=== PATIENT | female | born 1965 | race Caucasian/White ===

== ENCOUNTER 2019-07-14 05:53 | Observation (INO) ==
--- NOTE | 2019-06-29 16:11 | PAT Medication Instructions ---
Medication Instructions Date of Service June 29, 2019 Home Medications aspirin [Aspir-81] 81 mg PO QAM 06/23/19 [History Confirmed 06/23/19] diclofenac sodium 2 g TOPICAL BID 06/23/19 [History Confirmed 06/23/19] duloxetine 60 mg PO QPM 06/23/19 [History Confirmed 06/23/19] esomeprazole magnesium 20 mg PO BID 06/23/19 [History Confirmed 06/23/19] meloxicam 7.5 mg PO BID 06/23/19 [History Confirmed 06/23/19] ASK your surgeon for instructions meloxicam 7.5 mg PO BID 06/23/19 [History Confirmed 06/23/19] ASK your prescriber and surgeon aspirin [Aspir-81] 81 mg PO QAM 06/23/19 [History Confirmed 06/23/19] STOP taking 24 hours before surgery diclofenac sodium 2 g TOPICAL BID 06/23/19 [History Confirmed 06/23/19] Take morning of surgery With a small sip of water, OTHERWISE NOTHING TO EAT OR DRINK AFTER MIDNIGHT: esomeprazole magnesium 20 mg PO BID 06/23/19 [History Confirmed 06/23/19] Take evening before surgery duloxetine 60 mg PO QPM 06/23/19 [History Confirmed 06/23/19] esomeprazole magnesium 20 mg PO BID 06/23/19 [History Confirmed 06/23/19] Other Notes If you have any questions please call us at [phone] or [phone] or [phone] or [phone]
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
[2019-06-30 12:14] LABS: Appearance Urine Clear (Clear); Bilirubin Urine Negative (Negative); Blood Urine Negative (Negative); Color Urine Yellow; Glucose Urine UA Negative (Negative); Ketones Urine Negative (Negative); Leukocyte Esterase Urine Negative (Negative); Nitrite Urine Negative (Negative); Protein Urine Negative (Negative); Specific Gravity Urine 1.014 (1.000-1.030); Urobilinogen Urine Negative (Negative)
[2019-06-30 12:18] LABS: Basophils # (auto) 0.03 K/uL (0-0.2); Basophils % (auto) 0.4 %; Eosinophils # (auto) 0.04 K/uL (0-0.5); Eosinophils % (auto) 0.5 %; Hematocrit (blood only) 41.5 % (37-47); Hemoglobin 13.9 g/dL (12.0-16.0); Immature Granulocytes # (auto) 0.01 K/uL (0.00-0.02); Immature Granulocytes % (auto) 0.1 %; Lymphocytes # (auto) 1.84 K/uL (1.2-3.4); Lymphocytes % (auto) 23.7 %; Mean Corpuscular Hemoglobin 30.5 pg (25-34); Mean Corpuscular Hgb Conc 33.5 g/dL (32-36); Mean Platelet Volume 10.8 fL (7.4-10.4); Monocytes % (auto) 6.4 %; Neutrophils # (auto) 5.34 K/uL (1.4-6.5); Neutrophils % (auto) 68.9 %; Platelet Count 223 K/uL (130-400); RDW Coefficient of Variation 14.1 % (11.5-14.5); RDW Standard Deviation 46.9 fL (36.4-46.3); Red Blood Count 4.56 M/uL (4.2-5.4); White Blood Count 7.76 K/uL (4.8-10.8)
[2019-06-30 12:27] LABS: Partial Thromboplastin Ratio 0.8; Prothrombin Time 9.8 Seconds (9.0-12.0)
--- NOTE | 2019-06-30 12:40 | XRay Report ---
XR chest Pre-admission PA/Lat CLINICAL HISTORY: Preoperative chest COMPARISON STUDY: No previous studies for comparison. FINDINGS: The cardiac and mediastinal contours are normal. There is no evidence of focal pulmonary co nsolidation. There is no evidence of failure. No pleural effusions are visualized.[ IMPRESSION: No active disease in the chest. Electronically signed by: Alan Urena M.D. 06/30/2019 12:39 PM
[2019-06-30 15:09] LABS: BUN Creatinine Ratio 14.4 (10-20); Calcium 9.5 mg/dl (8.5-10.1); Creatinine Clr Calc Pharmacy 82.5 ml/min; Est GFR (Non-African American) 79.4
[2019-07-14] MEDS ORDERED: ACETAMINOPHEN 500 MG TAB PO SCH (06:00)
[2019-07-14] MEDS ORDERED: CeleBREX 200 MG CAP PO SCH (06:00)
[2019-07-14] MEDS ORDERED: LR 15ML/HR IV SCH (06:00)
[2019-07-14] MEDS ORDERED: CEFAZOLIN 2000MG 2,000 MG/15 ML SYR IV SCH (06:00)
[2019-07-14] MEDS ORDERED: GABAPENTIN 900 MG DOSE PO SCH (06:00)
[2019-07-14] MEDS ORDERED: fentaNYL citrate 100 MCG/2 ML VIAL ONE ×5 (06:36→09:35)
[2019-07-14] MEDS ORDERED: MIDAZOLAM HCL 1 MG/ML 2ML VIAL ONE (06:36)
[2019-07-14] MEDS ORDERED: HYDROmorphone INJ 2 MG/ML SYR/VIAL ONE ×2 (06:37→08:12)
[2019-07-14] MEDS ORDERED: PROPOFOL IV EMULSION 10 MG/ML 100 ML VIAL IV ONE (06:52)
[2019-07-14] MEDS ORDERED: BACITRACIN INJ 50,000 UNIT VIAL ONE (07:07)
[2019-07-14] MEDS ORDERED: SODIUM CHLORIDE 0.9% INJ 10 ML VIAL ONE (07:20)
--- NOTE | 2019-07-14 07:29 | History & Physical Bridge Note ---
Date of Service July 14, 2019 History & Physical Bridge Note I have examined the patient, reviewed the History & Physical and in the interval since the performance of the History & Physical I have noted the following changes of clinical significance: no changes noted
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
[2019-07-14] MEDS ORDERED: LIDOCAINE HCL 2% 2 ML VIAL/AMP(20MG/ML) INFIL ONE (08:13)
[2019-07-14] MEDS ORDERED: ROCURONIUM BROMIDE 10 MG/ML 5 ML VIAL ONE (08:13)
[2019-07-14] MEDS ORDERED: ONDANSETRON INJ 2 MG/ML 2 ML VIAL ONE ×2 (08:13→09:38)
[2019-07-14] MEDS ORDERED: GLYCOPYRROLATE 0.2 MG/ML VIAL ONE (08:13)
[2019-07-14] MEDS ORDERED: PROPOFOL IV EMULSION 10 MG/ML 20 ML VIAL IV ONE ×2 (08:13→09:39)
[2019-07-14] MEDS ORDERED: DEXAMETHASONE SOD INJ 4 MG/ML VIAL ONE (08:13)
[2019-07-14] MEDS ORDERED: ePHEDrine sulfate 50 MG/ML SYR ONE (08:13)
[2019-07-14] MEDS ORDERED: NEOSTIGMINE METHYLSULFATE 1 MG/ML 10ML VIAL ONE (08:13)
[2019-07-14] MEDS ORDERED: PHENYLEPHRINE 100MCG/ML 5ML SYR ONE (08:20)
[2019-07-14] MEDS ORDERED: LARYING-O-JET KIT (LTA) ONE (08:20)
[2019-07-14] MEDS ORDERED: FLOSEAL HEMOSTATIC MATRIX 10ML TOP ONE (09:21)
--- NOTE | 2019-07-14 09:30 | Operative Report ---
Post Operative Report Pre & Post Diagnosis Operation Date: 07/14/19 07:45 Pre-Op Diagnosis: Cervical stenosis with cervical disc herniation and radiculopathy Post-Op Diagnosis: Same I identified the patient and participated in the time-out.: Yes Procedure Operation Date: 07/14/19 07:45 Actual Procedures #1 anterior cervical discectomy with bilateral foraminotomies C5-6 C6-7. #2 anterior cervical arthrodesis C5-6 C6-7. #3 placement of Spira 7 mm cage filled with DBM at C5-6 and 8 mm cage at C6-7. #4 application of fermin plate and screws from C5-C7. Surgeon Deon Lindsey, Ophthalmic Tech Kayley Diallo Estimated Blood Loss 25 Findings Consistent with Post-Op Diagnosis Specimens None Indications This is a 54-year-old female presents with above-mentioned diagnosis after failing extensive course of nonoperative care like to undergo the above- mentioned procedure. Description of Procedure Patient was met with identified and informed consent obtained. Patient was then taken to the operative suite underwent intubation placed in supine position Rohan table with head [employer] cafeteria cook head. All bony prominences well-padded eyes inspected to ensure no external pressure placed upon the peer at this point the anterior cervical spine was prepped and draped in a normal sterile fashion. The assistance of fluoroscopy identified the see 6 vertebral body and a transverse incision was placed along the right anterior aspect of the cervical spine overlying this region. Sharp dissection with the assistance of Bovie cautery was performed down to and exposing the anterior cervical spine from C5- C7. Self-retaining retractors placed. I then performed a complete discectomy a t C5-6 out to the uncovertebral joints bilaterally. [place] distracting pins were utilized. Removed all posterior annular fibers longitudinal ligament of disc fragments identified and removed. Bilateral foraminotomies performed. The endplates were then burred to subcortical being bone and a 7 mm Spira cage filled with DBM tapped in position. I then proceeded to C6-7. Again complete discectomy performed out to the uncovertebral joints bilaterally. [place] distracting pins again utilized. Removed all posterior annular fibers all disc herniated fragments and bilateral foraminal was performed endplates were then burred to subcortical bleeding bone and a 8 mm spiral cage filled with DBM tapped in position. Distraction apparatus was removed and a fermin plate and screws applied with the assistance of fluoroscopy. The incision was then copiously irrigated explored to ensure no damage to surrounding structures remaining bleeding. 10 round GUILLERMO drain inserted. The incision was then closed with 2 Vicryl in the fascia and 4 Monocryl for final skin closure. Steri-Strip sterile dressings placed. Patient awakened taken to PACU stable condition. Please note Kayley Diallo present throughout the entire procedure involved in patient positioning complex portions of the surgery and final skin closure. Lastly spinal cord monitoring was utilized throughout the procedure no changes noted. I attest to the content of the Intraoperative Record and any orders documented therein. Any exceptions are noted below.
[2019-07-14] MEDS ORDERED: METOCLOPRAMIDE HCL INJ 5 MG/ML 2 ML VIAL ONE (09:38)
[2019-07-14] MEDS ORDERED: raNITIdine HCl 25 MG/ML VIAL IV ONE (09:38)
--- NOTE | 2019-07-14 10:27 | Fluoroscopy Report ---
FL cervical 2-3V CLINICAL HISTORY: 54 years-old Female presenting with C5-C7 ACDF. TECHNIQUE: 3 fluoroscopic image(s) recorded as part of an intraoperative procedure. COMPARISON: None. FINDINGS/IMPRESSION: Post-surgical changes of anterior cervical discectomy and fusion. Straightening of normal cervical lo rdosis likely positional. Surgical material and support devices project over the anterior neck. Please see surgical report for further details. Fluoroscopy dosage (mGy): 1.46. Fluoroscopy time: 12.0 seconds. Number or time of high level fluoroscopy (HLF), digital spot, or digital subtraction images: 1.7 seco nds. Electronically signed by: Parish Hale M.D. 07/14/2019 10:25 AM
--- NOTE | 2019-07-14 10:29 | Anesthesiology Progress Note ---
Date of Service July 14, 2019 Anesthesia Post Procedure Vital Signs Vital Signs: Temp Pulse Resp BP Pulse Ox 07/14/19 10:15 85 13 133/81 98 07/14/19 10:05 72 12 145/76 H 100 07/14/19 09:55 80 14 141/76 H 100 07/14/19 09:47 36.7 C 83 13 138/78 98 07/14/19 06:35 36.8 C 84 16 137/87 95 Pain Intensity Back: Pain Intensity: 2 Neck: Pain Intensity: 0 Transfer of Care Handoff Completed per policy Notes Mental Status: alert / awake / arousable and participated in evaluation Patient Amnestic to Procedure: Yes Nausea / Vomiting: adequately controlled Pain: adequately controlled Airway Patency, RR, SpO2: stable & adequate BP & HR: stable & adequate Hydration State: stable & adequate Anesthetic Complications: no major complications apparent
[2019-07-14] MEDS ORDERED: ESMOLOL HCL INJ 10 MG/ML 10ML VIAL IV ONE (10:38)
[2019-07-14] MEDS ORDERED: METOCLOPRAMIDE HCL INJ 5 MG/ML 2 ML VIAL IV PRN (11:25)
[2019-07-14] MEDS ORDERED: SOD PHOSPHATE/SOD BIPHOSPHATE ENEMA 132 ML BTL PR PRN (11:25)
[2019-07-14] MEDS ORDERED: ONDANSETRON 4 MG OD TAB PO PRN (11:25)
[2019-07-14] MEDS ORDERED: HYDROmorphone INJ 0.5 MG/0.5 ML SYR IV PRN (11:25)
[2019-07-14] MEDS ORDERED: ONDANSETRON INJ 2 MG/ML 2 ML VIAL IV PRN (11:25)
[2019-07-14] MEDS ORDERED: TRAMADOL HCL 50 MG TABLET PO PRN (11:25)
[2019-07-14] MEDS ORDERED: PROMETHAZINE HCL 12.5 MG in SODIUM CHLORIDE 0.9% 50 ML IV PRN (11:25)
[2019-07-14] MEDS ORDERED: ALUMINUM/MAGNESIUM SUSP 30 ML UDC PO PRN (11:25)
[2019-07-14] MEDS ORDERED: LORazepam 0.5 MG/1 ML VIAL IV PRN (11:25)
[2019-07-14] MEDS ORDERED: ACETAMINOPHEN 500 MG TAB PO PRN (11:25)
[2019-07-14] MEDS ORDERED: RACEPINEPHRINE 2.25% NEBU SOLN 0.5 ML VIAL INH PRN (11:25)
[2019-07-14] MEDS ORDERED: DEXAMETHASONE SOD PHOSPHATE 8 MG in SYRINGE 0 ML IV PRN (11:25)
[2019-07-14] MEDS ORDERED: DO NOT ADMINISTER FLU VACCINE PRN (11:25)
[2019-07-14] MEDS ORDERED: NALOXONE HCL 0.4 MG/1 ML VIAL/CARP IV PRN (11:25)
[2019-07-14] MEDS ORDERED: MAGNESIUM HYDROXIDE SUSP 30 ML UDC PO PRN (11:25)
[2019-07-14] MEDS ORDERED: FAMOTIDINE 20 MG TAB PO PRN (11:25)
[2019-07-14] MEDS ORDERED: HYDROmorphone INJ 1 MG/ML SYRINGE IV PRN (11:25)
[2019-07-14] MEDS ORDERED: ACETAMINOPHEN 1,000 MG/100 ML VIAL IV PRN (11:25)
[2019-07-14] MEDS ORDERED: DO NOT ADMINISTER PNEUMOCOCCAL VACCINE PRN (11:25)
[2019-07-14] MEDS ORDERED: LORazepam 0.5 MG TAB PO PRN (11:25)
[2019-07-14] MEDS: OXYCODONE HCL IR 5 MG TAB (IMMEDIATE RELEASE) PO PRN ×2 (13:12→21:01)
[2019-07-14] MEDS: LACTATED RINGER'S 1,000 ML IV SCH ×2 (14:08→23:08)
[2019-07-14] MEDS: CEFAZOLIN 2000MG 2,000 MG/15 ML SYR IV SCH ×2 (16:24→23:39)
[2019-07-14] MEDS: PANTOprazole 40 MG TAB PO SCH (20:15)
[2019-07-14] MEDS ORDERED: COUGH DROP (SUGAR FREE) LOZ 24 LOZ/1 BOX BUCCAL STA (20:56)
[2019-07-14] MEDS ORDERED: DULOXETINE HCL 60 MG CAP PO SCH (21:00)
[2019-07-14] MEDS ORDERED: DOCUSATE SODIUM/SENNA 50/8.6MG TAB PO SCH (21:00)
[2019-07-15 06:13] LABS: Basophils # (auto) 0.01 K/uL (0-0.2); Basophils % (auto) 0.1 %; Eosinophils # (auto) 0.01 K/uL (0-0.5); Eosinophils % (auto) 0.1 %; Hematocrit (blood only) 36.1 % (37-47); Immature Granulocytes # (auto) 0.02 K/uL (0.00-0.02); Immature Granulocytes % (auto) 0.2 %; Lymphocytes # (auto) 1.75 K/uL (1.2-3.4); Lymphocytes % (auto) 16.2 %; Mean Corpuscular Hemoglobin 30.3 pg (25-34); Mean Corpuscular Hgb Conc 33.2 g/dL (32-36); Mean Corpuscular Volume 91.2 fL (80-100); Mean Platelet Volume 10.8 fL (7.4-10.4); Monocytes # (auto) 1.01 K/uL (0.11-0.59); Monocytes % (auto) 9.4 %; Neutrophils # (auto) 7.97 K/uL (1.4-6.5); Platelet Count 181 K/uL (130-400); RDW Coefficient of Variation 14.5 % (11.5-14.5); RDW Standard Deviation 48.9 fL (36.4-46.3); Red Blood Count 3.96 M/uL (4.2-5.4); White Blood Count 10.77 K/uL (4.8-10.8)
[2019-07-15 06:46] LABS: BUN Creatinine Ratio 9.4 (10-20); Calcium 8.9 mg/dl (8.5-10.1); Creatinine Clr Calc Pharmacy 93.4 ml/min; Est GFR (African American) 102.3; Est GFR (Non-African American) 88.3
[2019-07-15] MEDS: PANTOprazole 40 MG TAB PO SCH (07:23)
[2019-07-15 07:41] VITALS: O2SAT 95
[2019-07-15 07:51] VITALS: BP 147/89; PULSE 80; TEMP 98.1
[2019-07-15] MEDS ORDERED: ASPIRIN 81 MG ECTAB PO SCH (09:00)
[2019-07-15] MEDS ORDERED: POLYETHYLENE (MIRALAX) 17 GM PACK PO SCH (09:31)
--- NOTE | 2019-07-15 10:03 | Discharge Summary ---
Date of Service July 15, 2019 Admission HPI Per Admitting Provider This is a 54-year-old female who presents with chronic persistent neck and arm pain. After failing extensive course of nonoperative care is here for surgical intervention. Principal Diagnosis Cervical disc herniations with radiculopathy Discharge Data Allergies Allergy/AdvReac Type Severity Reaction Status Date / Time No Known Allergies Allergy Verified 07/14/19 06:12 Procedures Performed Operation Date: 07/14/19 07:45 Actual Procedures p C5-C7 Anterior Cervical Discectomy and Fusion with Spinal Cord Monitoring(Not Applicable) - Deon Lindsey DO Ordered Studies 07/14/19 07:45 FL cervical 2-3V Routine FL fluoroscopy <1hr Routine Hospital Course (1) Cervical stenosis of spinal canal: Patient underwent anterior cervical discectomy fusion tolerated so was taken to orthopedic for postoperative. Postop day 1 she was swallowing well no hoarseness. Arm symptoms markedly improved. Pain well controlled. Subsequently discharged home. She had excellent strength testing. Discharge orders instructions from the chart for further review. Total Time Total Time Spent Total Time Spent (In Minutes): 20 minutes Discharge Plan Discharge Items Patient Disposition: Home - Self-Care Reason For Visit: Spinal Stenosis, Cervical Region Discharge Diagnosis: Cervical disc herniations with radiculopathy Activity: As commented below Non-emergency contact: Primary Care Provider Call non-emergency contact if: you have any medication questions Follow-up/Referrals: Severo Castañeda D.O. [Primary Care Provider] - Diet: Regular Addtl Attending Provider Instructions: ACTIVITY RECOMMENDATIONS: SELF CARE INSTRUCTIONS AFTER CERVICAL FUSIONS 1. No smoking. Smoking drastically decreases the chance of a solid fusion. 2. No bending, lifting more than 5 pounds, or twisting (roll like a log when turning in bed). 3. You may shower 3 days after surgery. Thoroughly dry wound. Do not soak in the tub. 4. Cervical collar: Must be worn at all times including sleeping. You may remove the brace only to bath, eat and if you are sitting in a recliner. 5. Please walk as much as you can for exercise. Gradually increase the distance that you walk as your endurance increases. SPECIAL CARE INSTRUCTIONS: VERY IMPORTANT TO READ AND REVIEW A. Do not take any anti-inflammatory medications (i.e. Indocin, Advil, Aspirin, Naprosyn, Aleve, Motrin, etc.) as these may inhibit the chance of a solid fusion. Tylenol is okay to take. B. Your surgical incision has been closed with a cosmetic suture under the skin that will dissolve in about 6 weeks. In 14 days, you can use a pair of clean scissors and cut the suture that is left outside of the skin at the ends of your incision. C. Complications are uncommon, but please contact us if you have any signs or symptoms of: 1. wound infection (fever higher than 102.5 degrees F, redness, separation of wound, drainage, or increasing pain from the incision) 2. blood clots in legs (pain, swelling, redness and warmth in legs) 3. urinary tract infection (fever higher than 102.5 degrees, burning upon urination or increased frequency of urination) 4. nerve problems (inability to walk on your toes or heels, numbness, loss of bowel or bladder control) 5. any other symptoms that concern you. D. Please call the office at if you have any concerns or questions about your operation or recovery. MANAGING PAIN AFTER SPINAL SURGERY 1. Narcotic medication is intended for short-term use and will be provided for surgical pain. Surgical pain usually lasts for a period of 4-6 weeks. Narcotic medication includes Percocet, Vicodin, Darvocet, Tylenol #3 or Lortab. 2. Longer-term pain is more appropriately treated with non-narcotic medication such as Tylenol ES. 3. Muscle spasm is not appropriately treated with narcotics. Muscle relaxers such as Soma, Flexeril or Skelaxin can be used along with Tylenol ES. 4. Remember that we all live with some "aches and pains". This is not unusual or uncommon after an injury or as we get older. 5. We will provide appropriate medication within the normal guidelines of their prescribed use. We will also be very cautious and aware of potential abuse and extended duration of patients' medication needs. 6. Please allow 2-3 days to process refills. Prescriptions will not be mailed but must be picked up at the office. FOLLOW UP VISIT: Keep your scheduled follow-up appointment. Any questions, please call the office at . Pending Studies at Discharge: No Stand-Alone Forms: My [facility], Smoking Cessation Medications and DC Order Prescriptions: New tramadol 50 mg tablet 50 mg PO Q6H PRN (Reason: pain, moderate) Qty: 15 RF: 0 oxycodone 5 mg tablet 5 mg PO Q6H PRN (Reason: pain, severe) Qty: 15 RF: 0 Continued aspirin [Aspir-81] 81 mg Tablet,Delayed Release (Dr/Ec) 81 mg PO QAM RF: 0 esomeprazole magnesium 40 mg Capsule,Delayed Release(Dr/Ec) 20 mg PO BID RF: 0 duloxetine 60 mg Capsule,Delayed Release(Dr/Ec) 60 mg PO QPM RF: 0 diclofenac sodium 1 % Gel 2 g TOPICAL BID RF: 0 Discontinued meloxicam 7.5 mg Tablet 7.5 mg PO BID RF: 0 Discharge Orders: Discharge Order (Routine); Ordered 07/15/19 Ordered By: Deon Lindsey Admission Data Admit Date/Time: 07/14/19 11:19 Attending Provider: Deon Lindsey Admit Provider: Deon Lindsey Primary Care Provider: Severo Castañeda
[2019-07-15] MEDS ORDERED: DEXAMETHASONE SOD PHOSPHATE 8 MG in SYRINGE 0 ML IV ONE (10:20)
[2019-07-16] MEDS ORDERED: BISACODYL 10 MG SUPP PR PRN (09:31)
== END 2019-07-15 11:34 | disposition home or self-care (01) ==
LOC: ASU 05:53 → 3E 05:53